=== PATIENT | male | born 1980 | race Two or more races ===

== ENCOUNTER 2018-06-16 13:44 | Emergency (ER) | payer MEDICAID ==
[~2018-06-16] VITALS: Ht 167.6 cm; Wt 67.0 kg
[2018-06-16 13:50] VITALS: BP 107/71
--- NOTE | 2018-06-16 14:00 | NUR ---
LEFT WRIST SWELLING AND PAIN. INJURED IT PLAYING SOCCER
--- NOTE | 2018-06-16 15:49 | NUR ---
SPLINT IN PLACE LEFT ARM. GOOD CMS. PLACED ARM IN SLING. PT AMBULATED TO D/C WINDOW, STEADY GAIT
== END 2018-06-16 15:51 | disposition home or self-care (01) ==
LOC: ED 14:32
DX: S52.502A Unspecified fracture of the lower end of left radius, initial encounter for closed fracture (principal); W18.39XA Other fall on same level, initial encounter; Y93.79 Activity, other specified sports and athletics; Y92.322 Soccer field as the place of occurrence of the external cause; Y99.8 Other external cause status
CPT/HCPCS: 29125; 99283